=== PATIENT | female | born 1945 | race Caucasian/White ===

== ENCOUNTER → 2022-01-04 | Outpatient (CLI) | payer MEDICARE | LOC: KOH-I 11:52 | DX: S02.2XXA Fracture of nasal bones, initial encounter for closed fracture (principal); X58.XXXA Exposure to other specified factors, initial encounter | CPT/HCPCS: 70160 ==

== ENCOUNTER 2022-01-14 10:47 | Emergency (ER) | payer OTHER ==
[2022-01-14 12:05] LABS: HEMOGLOBIN 11.1 gm/dl (12.3-15.3); RED BLOOD COUNT 4.05 M/UL (4.00-5.10); WHITE BLOOD COUNT 5.6 K/UL (4.5-11.0)
[2022-01-14 12:32] LABS: BUN/CREATININE RATIO 20 (0-10)
== END 2022-01-14 15:06 | disposition home or self-care (01) ==
LOC: ER1 10:47
PROVIDERS: Nurse Practitioner
DX: M54.2 Cervicalgia (principal); J32.9 Chronic sinusitis, unspecified; R11.2 Nausea with vomiting, unspecified; R19.7 Diarrhea, unspecified; I10 Essential (primary) hypertension; E11.9 Type 2 diabetes mellitus without complications; Z79.82 Long term (current) use of aspirin; Z88.8 Allergy status to other drugs, medicaments and biological substances; Z20.822 Contact with and (suspected) exposure to COVID-19; W01.0XXA Fall on same level from slipping, tripping and stumbling without subsequent striking against object, initial encounter; Y92.009 Unspecified place in unspecified non-institutional (private) residence as the place of occurrence of the external cause
CPT/HCPCS: 0240U; 36600; 70450; 70486; 71045; 72125; 80053; 81001; 82009; 82550; 82553; 82803; 82962; 84484; 85025; 87086; 93005; 96374; 96375; 99284; J1885